=== PATIENT | female | born 1960 | race Caucasian/White ===

== ENCOUNTER 2016-07-16 15:13 | Emergency (ER) | payer OTHER ==
[2016-07-16 17:41] VITALS: BP 137/72
[2016-07-16] MEDS ORDERED: Lidocaine 2% PF * 5 ML VIAL ONE (18:39)
[2016-07-16] MEDS ORDERED: Cephalexin CAP* 500 MG PO ONE (19:01)
--- NOTE | 2016-07-16 19:14 | UC ---
lian West Timothy, scribed for Elizabeth Vann MD on 07/16/16 at 1802 . Upper Extremity HPI - HPI Summary HPI Summary: Marcie Rivera is a 56 yo female presenting to [facility] with laceration at 1230 today to her left index finger. Laceration was made with a box hinge and lock attacher blade. She denies any pain currently, or any other Sx. 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 She takes 20 mg xarelto QD. Her tetanus is UTD. Pt presents because it will not stop bleeding. - History of Current Complaint Chief Complaint: UCLaceration Stated Complaint: FINGER LACERATION Hx Obtained From: Patient Onset/Duration: Sudden Onset, Lasting Hours, Still Present Severity Initially: Moderate Severity Currently: Moderate Pain Intensity: 0 Pain Scale Used: 0-10 Numeric Aggravating Factor(s): Movement - exacerbates bleeding Alleviating Factor(s): Nothing Associated Signs And Symptoms: Positive: Negative Related History: Dominant Hand Right - Risk Factors Non-Orthopedic Risk Factor: Negative DVT Risk Factors: Negative - Allergies/Home Medications Allergies/Adverse Reactions: Allergies Allergy/AdvReac Type Severity Reaction Status Date / Time Amoxicillin Allergy Mild Rash Verified 07/16/16 17:41 Azithromycin Allergy Mild Rash Verified 07/16/16 17:41 Penicillins Allergy Mild Rash Verified 07/16/16 17:41 Home Medications: Home Medications Rivaroxaban TAB(*) [Xarelto 20 mg] 20 mg PO DAILY 07/16/16 [History Confirmed ] PMH/Surg Hx/FS Hx/Imm Hx Endocrine History Of: Reports: Diabetes - type 2 Denies: Thyroid Disease Cardiovascular History Of: Reports: Cardiac Disorders - afib, Hypertension Respiratory History Of: Denies: COPD, Asthma GI/ History Of: Denies: Ulcer - Surgical History Surgical History: Yes Surgery Procedure, Year, and Place: 2010 RIGHT CARPAL TUNNEL RELEASE, [facility]. 2001 HYSTERECTOMY, [facility]. 04/03/1991 LEFT WRIST SURGERY, [place]. Right Thumb Trigger Finger and Dequarvain's Release, 06/03/12, [facility] - Family History Known Family History: Negative: Cardiac Disease, Hypertension, Other - pulmonary disease. - Social History Lives: With Family Alcohol Use: Rare Substance Use Type: None Substance Use Comment - Amount & Last Used: 2-5 caffeinated soda drinks/day Smoking Status (MU): Never Smoked Tobacco - Immunization History Most Recent Tetanus Shot: <5 YEARS ( OF 07/16/16) Review of Systems Constitutional: Negative Skin: Other - laceration left index finger Eyes: Negative ENT: Negative Respiratory: Negative Cardiovascular: Negative Gastrointestinal: Negative Genitourinary: Negative Motor: Negative Neurovascular: Negative Musculoskeletal: Negative Neurological: Negative Psychological: Negative All Other Systems Reviewed And Are Negative: Yes Physical Exam Triage Information Reviewed: Yes Appearance: Well-Appearing, No Pain Distress, Obese Vital Signs: Initial Vital Signs Temp 98.7 F 07/16/16 17:38 Pulse 78 07/16/16 17:38 Resp 18 07/16/16 17:38 BP 137/72 07/16/16 17:38 Vital Signs Reviewed: Yes Eyes: Positive: Conjunctiva Clear ENT: Positive: Hearing grossly normal. Negative: Muffled/hoarse voice Neck: Positive: Supple Respiratory: Positive: No respiratory distress Cardiovascular: Positive: RRR, Pulses Normal, Brisk Capillary Refill Musculoskeletal: Positive: Strength Intact, ROM Intact Neurological: Positive: Alert, Muscle Tone Normal Psychological Exam: Normal Skin: Positive: Other - laceration left index finger ~ 0.5 cm Procedures - Procedure Summary Procedure Summary: Pt tolerated procedure well - Laceration/Wound Repair 1 Location: upper extremity - left index finger Description: Linear Anesthesia: Digital, 2.0%, Lido Length, Depth and Shape: .5cm x 1mm x 1mm Betadine Prep?: Yes Laceration/Wound Explored: clean Closure: Single Layer Debridement: minimal Suture Type: Nylon - 4-0 Number of Sutures: 2 Layer Closure?: Yes Sterile Dressing Applied?: Yes Re-Evaluation - Re-Evaluation First Eval Re-Evaluation Time: 18:31 Change: Unchanged Comment: Time-out occured, lac repair req 2 sutures. Upper Extremity Course/Dx - Course Course Of Treatment: Marcie Rivera is a 56 yo female presenting to [facility] with a laceration to her left index finger. After examination, time out occurred at 1831. She had 2 sutures placed in her left index finger. She will be discharged with instructions on laceration and suture care, cephalexin for prophylaxis of infection, continue xarelto and other meds, and to return to or [facility] with any new or worsening Sx. - Differential Dx/Diagnosis Differential Diagnosis/HQI/PQRI: Contusion, Laceration Provider Diagnoses: Left index finger laceration with sutures,. hx atrial fibrillation on xarelto anticolagulation Discharge - Discharge Plan Condition: Stable Disposition: HOME Prescriptions: Cephalexin CAP* [Keflex 500 CAP*] 500 mg PO QID #20 cap Patient Education Materials: Finger Laceration (ED) Referrals: Briana Klein MD [Primary Care Provider] - Additional Instructions: Please have your sutures removed in 7-[address] Vann gave your first dose of cephalexin 500mg at 7:00pm to help prevent infection. Fill the prescription and start that tomorrow for five days. Return to urgent care or the emergency department with any new or worsening symptoms. The documentation as recorded by the lian alvarado Timothy accurately reflects the service I personally performed and the decisions made by , Elizabeth Vann MD.
== END 2016-07-16 19:19 | disposition home or self-care (01) ==
LOC: UCEAST 15:13
DX: S61.211A Laceration without foreign body of left index finger without damage to nail, initial encounter (principal); W45.8XXA Other foreign body or object entering through skin, initial encounter; Y93.9 Activity, unspecified; Y92.9 Unspecified place or not applicable; I48.91 Unspecified atrial fibrillation; Z79.01 Long term (current) use of anticoagulants; Z88.1 Allergy status to other antibiotic agents; Z88.0 Allergy status to penicillin
CPT/HCPCS: 12001; 99212; A9270-GY; G0463

== ENCOUNTER 2016-07-25 10:21 | Emergency (ER) | payer OTHER ==
[2016-07-25 11:20] VITALS: BP 123/78
--- NOTE | 2016-07-25 11:37 | UC ---
HPI Wound/Suture Re-check - HPI Summary HPI Summary: here to have 2 sutures removed from left index finger that were placed 07/16/16 - History Of Current Complaint Chief Complaint: UCGeneralIllness Stated Complaint: SUTURE REMOVAL Time Seen by Provider: 07/25/16 11:31 Hx Obtained From: Patient Onset/Duration: Sudden Onset, Lasting Days - 9, Resolved Surgical Site: left index finger Severity: Mild Pain Intensity: 0 Pain Scale Used: 0-10 Numeric - Allergies/Home Medications Allergies/Adverse Reactions: Allergies Allergy/AdvReac Type Severity Reaction Status Date / Time Amoxicillin Allergy Mild Rash Verified 07/25/16 11:15 Azithromycin Allergy Mild Rash Verified 07/25/16 11:15 Penicillins Allergy Mild Rash Verified 07/25/16 11:15 PMH/Surg Hx/FS Hx/Imm Hx Previously Healthy: No Endocrine History Of: Reports: Diabetes - type 2 Denies: Thyroid Disease Cardiovascular History Of: Reports: Cardiac Disorders - afib, Hypertension Respiratory History Of: Denies: COPD, Asthma GI/ History Of: Denies: Ulcer - Surgical History Surgical History: Yes Surgery Procedure, Year, and Place: 2010 [place] [facility] [place] [facility]. 04/03/1991 LEFT WRIST SURGERY, [place]. Right Thumb Trigger Finger and Dequarvain's Release[place] [facility] [place] Family History Known Family History: Negative: Cardiac Disease, Hypertension, Other - pulmonary disease. Family History: denies cardiovacular issues in family lineage - Social History Occupation: Employed Full-time - self employed Lives: With Family Alcohol Use: Rare Substance Use Type: None Substance Use Comment - Amount & Last Used: 2-5 caffeinated soda drinks/day Smoking Status (MU): Never Smoked Tobacco - Immunization History Most Recent Tetanus Shot: <5 YEARS ( OF 07/16/16) Review of Systems Constitutional: Negative Skin: Negative Eyes: Negative ENT: Negative Respiratory: Negative Cardiovascular: Negative Genitourinary: Negative Motor: Negative Neurovascular: Negative Musculoskeletal: Negative Neurological: Negative Psychological: Negative All Other Systems Reviewed And Are Negative: Yes Physical Exam Triage Information Reviewed: Yes Appearance: Well-Appearing, No Pain Distress, Well-Nourished Vital Signs: Initial Vital Signs Temp 97.5 F 07/25/16 11:16 Pulse 72 07/25/16 11:16 Resp 18 07/25/16 11:16 BP 123/78 07/25/16 11:16 Pulse Ox 97 07/25/16 11:16 Vital Signs Reviewed: Yes Eye Exam: Normal Eyes: Positive: Conjunctiva Clear ENT Exam: Normal ENT: Positive: Normal ENT inspection, Hearing grossly normal, Pharynx normal, TMs normal. Negative: Nasal congestion, Nasal drainage, Trismus, Muffled/ hoarse voice Neck exam: Normal Neck: Positive: Supple, Nontender Respiratory Exam: Normal Respiratory: Positive: Chest non-tender, No respiratory distress, No accessory muscle use Cardiovascular Exam: Normal Cardiovascular: Positive: RRR, Pulses Normal, Brisk Capillary Refill Musculoskeletal Exam: Normal Musculoskeletal: Positive: Strength Intact, ROM Intact, No Edema Neurological Exam: Normal Neurological: Positive: Alert, Muscle Tone Normal Psychological Exam: Normal Skin Exam: Normal Skin: Positive: Other - well approximated and healing wound Re-Evaluation - Re-Evaluation First Eval Change: Improved Course/Dx - Course Course Of Treatment: sutures removed soap and water wash re-check prn - Differential Dx - Laceration/Wound Differential Diagnoses: Abscess, Cellulitis, Healing Wound, Hematoma, Suture Removal Provider Diagnoses: Healing wound, suture removal Discharge - Discharge Plan Condition: Stable Disposition: HOME Patient Education Materials: Stitches Removal (ED) Referrals: Briana Klein MD [Primary Care Provider] - If Needed
== END 2016-07-25 11:45 | disposition home or self-care (01) ==
LOC: UCEAST 10:21
DX: Z48.02 Encounter for removal of sutures (principal); Z88.1 Allergy status to other antibiotic agents; Z88.0 Allergy status to penicillin

== ENCOUNTER 2017-08-03 14:54 | Emergency (ER) | payer OTHER ==
[2017-08-03 16:21] VITALS: BP 126/84
--- NOTE | 2017-08-03 16:43 | UC ---
Respiratory Complaint HPI - History of Current Complaint Chief Complaint: UCRespiratory Stated Complaint: COUGH Time Seen by Provider: 08/03/17 16:36 Hx Obtained From: Patient Onset/Duration: Gradual Onset - had URI over past 10 days but cough much worzses over past 2 days (daughter has pneumonia) Timing: Constant Severity Initially: Mild Severity Currently: Moderate Aggravating Factors: Deep Breaths, Recumbent Position Alleviating Factors: Nothing Associated Signs And Symptoms: Positive: Chills, URI, Nasal Congestion, Hoarseness. Negative: Hemoptysis - Allergies/Home Medications Allergies/Adverse Reactions: Allergies Allergy/AdvReac Type Severity Reaction Status Date / Time Amoxicillin Allergy Mild Rash Verified 08/03/17 16:22 Azithromycin Allergy Mild Rash Verified 08/03/17 16:22 Penicillins Allergy Mild Rash Verified 08/03/17 16:22 PMH/Surg Hx/FS Hx/Imm Hx Previously Healthy: Yes Endocrine History: Diabetes Cardiovascular History: Hypertension, Atrial Fibrillation - Surgical History Surgical History: Yes Surgery Procedure, Year, and Place: 2010 RIGHT CARPAL TUNNEL RELEASE, [facility] [place]. 2001 HYSTERECTOMY, [facility] [place]. 04/03/1991 LEFT WRIST SURGERY, [place]. Right Thumb Trigger Finger and Dequarvain's Release, 06/03/12, [facility] [place] - Family History Known Family History: Negative: Cardiac Disease, Hypertension, Other - pulmonary disease. Family History: denies cardiovacular issues in family lineage - Social History Occupation: Unemployed Lives: With Family Alcohol Use: Rare Substance Use Type: None Substance Use Comment - Amount & Last Used: 2-5 caffeinated soda drinks/day Smoking Status (MU): Former Smoker - Immunization History Most Recent Tetanus Shot: <5 YEARS ( OF 07/16/16) Review of Systems Constitutional: Chills, Fatigue Skin: Negative ENT: Sinus Congestion Respiratory: Cough Cardiovascular: Negative Psychological: Negative All Other Systems Reviewed And Are Negative: Yes Physical Exam Triage Information Reviewed: Yes Appearance: Well-Appearing, Well-Nourished, Obese Vital Signs: Initial Vital Signs Temp 98.4 F 08/03/17 16:18 Pulse 99 08/03/17 16:18 Resp 18 08/03/17 16:18 BP 126/84 08/03/17 16:18 Pulse Ox 98 08/03/17 16:18 Vital Signs Reviewed: Yes Eyes: Positive: Conjunctiva Clear ENT: Positive: Pharynx normal, Nasal congestion Neck exam: Normal Respiratory: Positive: Rhonchi, Other: - prod cough Cardiovascular Exam: Normal Musculoskeletal Exam: Normal Neurological Exam: Normal Psychological Exam: Normal Skin Exam: Normal Skin: Negative: rashes UC Diagnostic Evaluation - Laboratory O2 Sat by Pulse Oximetry: 98 Respiratory Course/Dx - Differential Dx/Diagnosis Differential Diagnosis/HQI/PQRI: Bronchitis, Influenza, Lower Resp Infection, Sinusitis Provider Diagnoses: bronchitis Discharge - Discharge Plan Condition: Stable Disposition: HOME Prescriptions: Cefdinir cap (NF) [Cefdinir 300 MG cap (NF)] 300 mg PO BID #20 cap Patient Education Materials: Acute Bronchitis (ED) Referrals: Briana Klein MD [Primary Care Provider] - 2 Days (if no better) Additional Instructions: rest drink plenty of fluids start antibiotic report to ER if symptoms worsen at any time
== END 2017-08-03 17:01 | disposition home or self-care (01) ==
LOC: UCEAST 14:54
DX: J40 Bronchitis, not specified as acute or chronic (principal); E11.9 Type 2 diabetes mellitus without complications; I48.91 Unspecified atrial fibrillation; I10 Essential (primary) hypertension; E66.9 Obesity, unspecified; Z90.710 Acquired absence of both cervix and uterus; Z88.1 Allergy status to other antibiotic agents; Z88.0 Allergy status to penicillin; Z87.891 Personal history of nicotine dependence
CPT/HCPCS: 99212; G0463

== ENCOUNTER 2018-06-17 11:24 | Emergency (ER) | payer OTHER ==
--- NOTE | 2018-06-17 11:31 | UC ---
Hand/Wrist HPI - HPI Summary HPI Summary: 58 yo female presents with injury to LEFT thumb. She tells me that 2 days ago she was using a drill and it slipped and punctured her left thumb at the nail- skin fold. She cleansed the area and applied "black salve" and a bandaid. Since that time the area has become red, painful, and is draining yellow pus. Date of last tetanus was 2006. Denies fever, chills, or decreased ROM. - History Of Current Complaint Stated Complaint: THUMB INJURY Time Seen by Provider: 06/17/18 11:30 Hx Obtained From: Patient Onset/Duration: Sudden Onset Severity Initially: Mild Severity Currently: Mild Pain Intensity: 2 Pain Scale Used: 0-10 Numeric - Allergies/Home Medications Allergies/Adverse Reactions: Allergies Allergy/AdvReac Type Severity Reaction Status Date / Time amoxicillin Allergy Mild Rash Verified 06/17/18 11:36 azithromycin Allergy Mild Rash Verified 06/17/18 11:36 Penicillins Allergy Mild Rash Verified 06/17/18 11:36 Home Medications: Home Medications Lansoprazole [Prevacid] 30 mg PO DAILY 06/17/18 [History Confirmed 06/17/18] PMH/Surg Hx/FS Hx/Imm Hx Endocrine History: Diabetes Cardiovascular History: Hypertension - Surgical History Surgical History: Yes Surgery Procedure, Year, and Place: 2010 RIGHT CARPAL TUNNEL RELEASE, [facility]. 2002 HYSTERECTOMY, [facility]. 04/03/1991 LEFT WRIST SURGERY, [place]. Right Thumb Trigger Finger and Dequarvain's Release, 06/03/12, [facility] - Family History Known Family History: Negative: Cardiac Disease, Hypertension - Social History Occupation: Employed Full-time Lives: With Family Alcohol Use: Rare Substance Use Type: None Substance Use Comment - Amount & Last Used: 2-5 caffeinated soda drinks/day Smoking Status (MU): Former Smoker - Immunization History Most Recent Tetanus Shot: <5 YEARS ( OF 07/16/16) Review of Systems All Other Systems Reviewed And Are Negative: Yes Constitutional: Positive: Negative Skin: Positive: Other - Left thumb puncture wound Respiratory: Positive: Negative Neurovascular: Positive: Negative Musculoskeletal: Positive: Negative Neurological: Positive: Negative Psychological: Positive: Negative Physical Exam - Summary Physical Exam Summary: GENERAL: NAD. WDWN. No pain distress. SKIN: LEFT THUMB: ulnar aspect of nail-skin fold with 2mm puncture wound. Mild surrounding erythema and edema. Mild yellow/white purulent matter able to be expressed. TTP. Mild warmth. CHEST: No accessory muscle use. Breathing comfortably and in no distress. CV: Pulses intact. Cap refill <2seconds MSK: FROM at thumb without pain NEURO: Alert. PSYCH: Age appropriate behavior. Triage Information Reviewed: Yes Vital Signs: Vital Signs: Temp Pulse Resp BP Pulse Ox 97.5 F 74 18 159/82 96 06/17/18 11:30 06/17/18 11:30 06/17/18 11:30 06/17/18 11:30 06/17/18 11:30 Vital Signs Reviewed: Yes Hand/Wrist Course/Dx - Course Course Of Treatment: tdap updated today. Wound cleansed with NS. Triple anbx and band-aid applied. Will start her on keflex for wound infection and have her f/u if symptoms do not improve. - Differential Dx/Diagnosis Provider Diagnosis: Puncture wound of left thumb Discharge - Sign-Out/Discharge Documenting (check all that apply): Patient Departure All imaging exams completed and their final reports reviewed: No Studies - Discharge Plan Condition: Stable Disposition: HOME Prescriptions: Cephalexin CAP* [Keflex CAP*] 500 mg PO BID #14 cap Patient Education Materials: Puncture Wound (DC) Referrals: Briana Klein MD [Primary Care Provider] - Additional Instructions: If you develop a fever, shortness of breath, chest pain, new or worsening symptoms - please call your PCP or go to the ED. Your blood pressure was high at todays visit. Please see your primary provider within 4 weeks for recheck and re-evaluation. 1) Keep the area clean and bandaged until well healed - Billing Disposition and Condition Condition: STABLE Disposition: Home
[2018-06-17 11:35] VITALS: BP 159/82
[2018-06-17] MEDS ORDERED: Tetan/Diph/Pertus SYR(Tdap)* 0.5 ML SYR(BOOSTRIX) use SYR IM ONE (11:42)
== END 2018-06-17 11:58 | disposition home or self-care (01) ==
LOC: UCEAST 11:24
DX: S61.132A Puncture wound without foreign body of left thumb with damage to nail, initial encounter (principal); W29.8XXA Contact with other powered hand tools and household machinery, initial encounter; Y92.9 Unspecified place or not applicable; Z23 Encounter for immunization; Z88.1 Allergy status to other antibiotic agents; Z88.0 Allergy status to penicillin; Z87.891 Personal history of nicotine dependence
CPT/HCPCS: 90715; 99212; G0463

== ENCOUNTER 2018-08-26 12:39 | Emergency (ER) | payer OTHER ==
[2018-08-26 13:33] VITALS: BP 133/86
[2018-08-26] MEDS ORDERED: Naproxen TAB* 250 MG PO ONE (14:07)
--- NOTE | 2018-08-26 14:58 | UC ---
Upper Extremity HPI - HPI Summary HPI Summary: 58-year-old female presents with onset of left ulnar wrist pain yesterday. Denies injury although has a history of wrist fracture with ORIF in 2011. States pain is progressively worsened over the last 24 hours. Describes as severe aching. Worsens with any type of movement. The patient has not taken anything for pain relief. Denies erythema, ecchymosis, numbness or tingling. - History of Current Complaint Chief Complaint: UCUpperExtremity Stated Complaint: LT WRIST INJURY Time Seen by Provider: 08/26/18 14:01 Hx Obtained From: Patient Pain Intensity: 9 - Allergies/Home Medications Allergies/Adverse Reactions: Allergies Allergy/AdvReac Type Severity Reaction Status Date / Time amoxicillin Allergy Mild Rash Verified 08/26/18 13:34 azithromycin Allergy Mild Rash Verified 08/26/18 13:34 Penicillins Allergy Mild Rash Verified 08/26/18 13:34 cephalexin Allergy Rash Verified 08/26/18 13:34 PMH/Surg Hx/FS Hx/Imm Hx Endocrine History: Diabetes Cardiovascular History: Hypertension GI/ History: Gastroesophageal Reflux - Surgical History Surgical History: Yes Surgery Procedure, Year, and Place: 2010 RIGHT CARPAL TUNNEL RELEASE, [facility]. 2002 HYSTERECTOMY, [facility]. 04/03/1991 LEFT WRIST SURGERY, [place]. Right Thumb Trigger Finge and Dequarvain's Release, 06/03/12, [facility] [place] - Family History Known Family History: Negative: Cardiac Disease, Hypertension, Other - pulmonary disease. Family History: denies cardiovacular issues in family lineage - Social History Occupation: Unemployed Lives: With Family Alcohol Use: Rare Substance Use Type: None Substance Use Comment - Amount & Last Used: 2-5 caffeinated soda drinks/day Smoking Status (MU): Former Smoker - Immunization History Most Recent Tetanus Shot: <5 YEARS ( OF 07/16/16) Review of Systems All Other Systems Reviewed And Are Negative: Yes Constitutional: Negative: Fever, Chills Skin: Negative: Rash, Bruising Respiratory: Positive: Negative Cardiovascular: Positive: Negative Gastrointestinal: Positive: Negative Genitourinary: Positive: Negative Motor: Negative: Weakness Neurovascular: Negative: Decreased Sensation Musculoskeletal: Positive: Other: - See HPI Physical Exam - Summary Physical Exam Summary: GENERAL APPEARANCE: Well developed, well nourished, alert and cooperative, and appears to be in no acute distress. CARDIAC: Normal S1 and S2. No S3, S4 or murmurs. Rhythm is regular. There is no peripheral edema, cyanosis or pallor. Extremities are warm and well perfused. Capillary refill is less than 2 seconds. Peripheral pulses intact. LUNGS: Clear to auscultation without rales, rhonchi, wheezing or diminished breath sounds. ABDOMEN: Positive bowel sounds. Soft, nondistended, nontender. No guarding or rebound. No masses or hepatosplenomegally. MUSKULOSKELETAL: Normal muscular development. Normal gait. EXTREMITIES: Tenderness to the ulnar left wrist without erythem, ecchymosis, or edema. There is a well-healed surgical scar noted to the dorsal aspect of her left wrist. Range of motion diminished due to pain. Circulation and sensation intact distally. SKIN: Skin normal color, texture and turgor. Triage Information Reviewed: Yes Vital Signs: Initial Vital Signs Temp 97.9 F 08/26/18 13:29 Pulse 99 08/26/18 13:29 Resp 18 08/26/18 13:29 BP 133/86 08/26/18 13:29 Pulse Ox 97 08/26/18 13:29 Vital Signs Reviewed: Yes Diagnostics - Radiology No standard instances Radiology Interpretation Completed By: Radiologist Summary of Radiographic Findings: Patient Name: KRISTIN BARBOZA Medical Record#: [id number]. Ordering Physician: Jordi Mejia NP Acct.#: [id number]. : 1960 Age: 58 Sex: F Location: [facility]. Exam Date: 07/02 140 ADM Status: REG ER. Order Information: WRIST LEFT 3+ VWS. Accession Number: [id number]. CPT: 77771. INDICATION: Ulnar aspect left wrist pain since the previous day. COMPARISON: Left hand radiograph dated March 16, 2016. TECHNIQUE: 3 views left wrist. REPORT: Degenerative changes of the left wrist include sclerotic bony remodeling of the. distal articulating surface of the radius. There is positive ulnar variance measuring. approximately 8 mm. Degenerative changes at the left thumb include sclerotic bony. remodeling at the joint space between the left thumb metacarpal and trapezium. IMPRESSION: Degenerative changes of the left wrist including positive ulnar variance similar. appearance to the March 16, 2016 radiograph of the hand. Upper Extremity Course/Dx - Course Course Of Treatment: 58-year-old female presents with onset of left ulnar wrist pain yesterday. Denies injury although has a history of wrist fracture with ORIF in 2011. States pain is progressively worsened over the last 24 hours. Describes as severe aching. Worsens with any type of movement. The patient has not taken anything for pain relief. Denies erythema, ecchymosis, numbness or tingling. Afebrile. Vital signs stable. Exam reveals tenderness to the ulnar left wrist without erythem, ecchymosis, or edema. There is a well-healed surgical scar noted to the dorsal aspect of her left wrist. Range of motion diminished due to pain. Circulation and sensation intact distally. X-ray shows some chronic degenerative changes that were present on previous x-ray from March 2016. No acute changes. Patient was given a dose of naproxen in the clinic for pain. She was placed in a cockup wrist splint by the RN. Circulation sensation intact pre-and post-application. Recommending conservative treatment for an acute tendinitis of the left wrist with over-the- counter analgesics and RICE. She is to follow-up with her primary care provider in 7 days if symptoms do not improve. Anticipatory guidance and warning symptoms were reviewed with the patient. Verbalizes understanding and agrees with plan of care. - Differential Dx/Diagnosis Differential Diagnosis/HQI/PQRI: Arthritis, Contusion, Fracture (Closed), Strain , Sprain Provider Diagnosis: Left wrist tendonitis Discharge - Sign-Out/Discharge Documenting (check all that apply): Patient Departure All imaging exams completed and their final reports reviewed: No Studies - Discharge Plan Condition: Stable Disposition: HOME Patient Education Materials: Tenosynovitis (ED) Referrals: Briana Klein MD [Primary Care Provider] - 7 Days (If no improvement in symptoms. ) Additional Instructions: Your x-ray showed no evidence of a fracture or dislocation. There are some chronic changes that were present on the last x-ray performed on March 2016. I suspect that your pain is from a tendonitis of the wrist. Rest the arm as much as possible. Wear the splint applied in the clinic for support until you are pain free. You may remove to shower but wear at all other times. Apply ice to the affected area for 15-20 minutes at least 4 times a day for next few days. Keep the arm elevated at the level of your heart to help reduce any swelling. Take acetaminophen (Tylenol) or ibuprofen (Advil, Motrin) according to directions as needed for pain. Follow up with your primary care provider in 7 days if no improvement in symptoms. Seek immediate medical attention in the emergency room if you have severe pain not managed with pain medication, your hand or fingers turn a pale or bluish color, you develop numbness or tingling in the hand or fingers, or have any worsening of symptoms. - Billing Disposition and Condition Condition: STABLE Disposition: Home
== END 2018-08-26 15:13 | disposition home or self-care (01) ==
LOC: UCEAST 12:39
DX: M77.9 Enthesopathy, unspecified (principal); Z87.891 Personal history of nicotine dependence; I10 Essential (primary) hypertension; E11.9 Type 2 diabetes mellitus without complications; Z88.0 Allergy status to penicillin; Z88.1 Allergy status to other antibiotic agents
CPT/HCPCS: 99213; A9270-GY; G0463